=== PATIENT | female | born 1985 | race Caucasian/White ===

== ENCOUNTER → 2021-01-11 | Outpatient (CLI) | payer OTHER ==
[~2021-01-11] MED LIST: BENTYL 20MG TAB20 MG PO; IBUPROFEN600 MG PO; KEFLEX CAP 500500 MG PO; ONDANSETRON ODT4 MG PO; PYRIDIUM200 MG PO; REGLAN10 MG PO
== END ==
LOC: EXRD 15:55
DX: R59.9 Enlarged lymph nodes, unspecified (principal)
CPT/HCPCS: 76536

== ENCOUNTER → 2021-10-19 | Outpatient (CLI) | payer OTHER | LOC: CT 10-08 09:30 | DX: R10.9 Unspecified abdominal pain (principal); K42.9 Umbilical hernia without obstruction or gangrene | CPT/HCPCS: Q9967 ==

== ENCOUNTER 2022-03-26 13:16 | Emergency (ER) | payer OTHER ==
[2022-03-26 14:14] LABS: HEMOGLOBIN 15.2 gm/dl (12.3-15.3); RED BLOOD COUNT 5.04 M/UL (4.00-5.10); WHITE BLOOD COUNT 7.1 K/UL (4.5-11.0)
[2022-03-26 14:41] LABS: BUN/CREATININE RATIO 12 (0-10)
== END 2022-03-26 15:25 | disposition home or self-care (01) ==
LOC: ER1 13:16
PROVIDERS: Physician Assistant
DX: U07.1 COVID-19 (principal); Z88.2 Allergy status to sulfonamides
CPT/HCPCS: 0240U; 71045; 80053; 82550; 82553; 83605; 83690; 84484; 85025; 85379; 93005; 96374; 96375; 99284; J1885; J2405